=== PATIENT | female | born 1985 | race Caucasian/White ===

== ENCOUNTER 2021-10-11 14:11 | Emergency (ER) | payer OTHER ==
[~2021-10-11] VITALS: Ht 160 cm; Wt 99.8 kg
[~2021-10-11 14:11] MED LIST: CLIN150C16 PO; HYDR-4275 PO
[2021-10-11 14:24] VITALS: BP 160/85
[2021-10-11] MEDS ORDERED: POLY119P2 PO (14:47)
[2021-10-11] MEDS ORDERED: MAGN296S72 PO (14:47)
[2021-10-11] MEDS ORDERED: GLYC-30 RC (14:47)
== END 2021-10-11 15:08 | disposition home or self-care (01) ==
LOC: ER 14:11
DX: K59.00 Constipation, unspecified (principal); I10 Essential (primary) hypertension; E11.9 Type 2 diabetes mellitus without complications; Z88.0 Allergy status to penicillin; Z79.899 Other long term (current) drug therapy

== ENCOUNTER 2022-06-07 18:10 | Emergency (ER) | payer OTHER ==
[~2022-06-07] VITALS: Ht 160 cm; Wt 90.7 kg
[~2022-06-07 18:10] MED LIST changes: +GLYC-30 RC; +POLY119P2 PO
[2022-06-07 18:26] VITALS: BP 126/82
[2022-06-07] MEDS ORDERED: KETOROLAC TROMETHAMINE INJ 60 MG/2 ML VIAL IM ONE (22:30)
[2022-06-07] MEDS ORDERED: PROCHLORPERAZINE EDISYLATE 10 MG/2 ML VIAL IM ONE (22:30)
[2022-06-07] MEDS ORDERED: PROCHLORPERAZINE EDISYLATE 10 MG/2 ML VIAL ONE (22:39)
[2022-06-07] MEDS ORDERED: KETOROLAC TROMETHAMINE INJ 30 MG/ML VIAL ONE (22:39)
--- NOTE | 2022-06-07 22:49 | NUR ---
COVID AND FLU SWAB DONE AND SENT
--- NOTE | 2022-06-07 22:50 | NUR ---
CELLPHONE: [phone]
--- NOTE | 2022-06-07 22:50 | NUR ---
Patient discharged to home in stable condition. Written and verbal after care instructions given. Patient verbalizes understanding of instruction. Pt ambulatory with a steady gait
== END 2022-06-07 22:50 | disposition home or self-care (01) ==
LOC: ER 18:13
DX: J06.9 Acute upper respiratory infection, unspecified (principal); R51.9 Headache, unspecified; Z20.822 Contact with and (suspected) exposure to COVID-19; E11.65 Type 2 diabetes mellitus with hyperglycemia; Z79.84 Long term (current) use of oral hypoglycemic drugs; I10 Essential (primary) hypertension; E66.9 Obesity, unspecified; Z68.35 Body mass index [BMI] 35.0-35.9, adult; Z88.0 Allergy status to penicillin
CPT/HCPCS: 99284; 87426; 87804 ×2; 96372 ×2; J0780; J1885; C9803

== ENCOUNTER 2023-06-12 20:49 | Emergency (ER) | payer MEDICAID, OTHER ==
[~2023-06-12] VITALS: Ht 160 cm; Wt 90.7 kg
[2023-06-12 21:36] VITALS: BP 136/79; TEMP 98.8; O2SAT 98
[2023-06-12] MEDS ORDERED: AZIT250T13 PO (22:04)
== END 2023-06-12 22:47 | disposition home or self-care (01) ==
LOC: ER 20:52
DX: H66.92 Otitis media, unspecified, left ear (principal); I10 Essential (primary) hypertension; E11.9 Type 2 diabetes mellitus without complications; Z88.0 Allergy status to penicillin

== ENCOUNTER 2023-08-28 22:45 | Emergency (ER) | payer OTHER ==
[~2023-08-28] VITALS: Ht 160 cm; Wt 95.3 kg
[~2023-08-28 22:45] MED LIST changes: +AZIT250T13 PO
[2023-08-28 23:21] VITALS: BP 138/77; TEMP 98.8
[2023-08-28 23:50] VITALS: O2SAT 100
== END 2023-08-28 23:51 | disposition home or self-care (01) ==
LOC: ER 22:49
DX: J06.9 Acute upper respiratory infection, unspecified (principal); R05.9 Cough, unspecified; I10 Essential (primary) hypertension; E11.9 Type 2 diabetes mellitus without complications

== ENCOUNTER 2023-09-15 23:50 | Emergency (ER) | payer OTHER ==
[~2023-09-15] VITALS: Ht 160 cm; Wt 95.3 kg
[2023-09-16 00:15] VITALS: TEMP 98.4
[2023-09-16] MEDS ORDERED: NITR100C15 PO (00:40)
[2023-09-16] MEDS ORDERED: NITROFURANTOIN/MONOHYDRATE MACROCRYSTALS 100 MG CAPSULE ONE (00:47)
[2023-09-16] MEDS: NITROFURANTOIN/MONOHYDRATE MACROCRYSTALS 100 MG CAPSULE PO ONE (00:49)
[2023-09-16 00:51] VITALS: BP 138/81; O2SAT 100
== END 2023-09-16 00:52 | disposition home or self-care (01) ==
LOC: ER 23:59
DX: N39.0 Urinary tract infection, site not specified (principal); I10 Essential (primary) hypertension; E11.9 Type 2 diabetes mellitus without complications; E66.9 Obesity, unspecified; Z79.899 Other long term (current) drug therapy; Z68.37 Body mass index [BMI] 37.0-37.9, adult; Z88.0 Allergy status to penicillin

== ENCOUNTER 2023-10-20 15:56 | Emergency (ER) | payer MEDICAID, OTHER ==
[~2023-10-20] VITALS: Ht 160 cm; Wt 95.3 kg
[~2023-10-20 15:56] MED LIST changes: +NITR100C15 PO
[2023-10-20] MEDS ORDERED: DOXY100C2 PO (17:51)
[2023-10-20] MEDS ORDERED: LEVO500T90 PO (17:51)
[2023-10-20 17:59] VITALS: BP 159/89; TEMP 98.6
[2023-10-20 18:10] VITALS: O2SAT 100
== END 2023-10-20 18:10 | disposition home or self-care (01) ==
LOC: ER 16:02
DX: K04.7 Periapical abscess without sinus (principal); I10 Essential (primary) hypertension; E11.9 Type 2 diabetes mellitus without complications; Z79.899 Other long term (current) drug therapy; Z88.0 Allergy status to penicillin

== ENCOUNTER 2024-06-01 14:23 | Emergency (ER) | payer SELFPAY ==
[~2024-06-01] VITALS: Ht 160 cm; Wt 90.7 kg
[~2024-06-01 14:23] MED LIST changes: +DOXY100C2 PO; +LEVO500T90 PO
[2024-06-01 14:49] VITALS: BP 142/72; TEMP 99.3
[2024-06-01] MEDS ORDERED: BENZ-13 PO (15:32)
[2024-06-01] MEDS ORDERED: dexaMETHasone SOD PHOSPHATE 1 ML ONE (15:35)
[2024-06-01] MEDS: dexaMETHasone SOD PHOSPHATE 10 MG/ML VIAL IM ONE (15:40)
[2024-06-01 15:50] VITALS: O2SAT 97
== END 2024-06-01 15:51 | disposition home or self-care (01) ==
LOC: ER 14:28
DX: J02.8 Acute pharyngitis due to other specified organisms (principal); B97.89 Other viral agents as the cause of diseases classified elsewhere; I10 Essential (primary) hypertension; E11.9 Type 2 diabetes mellitus without complications; E66.9 Obesity, unspecified; Z88.0 Allergy status to penicillin
CPT/HCPCS: 99283; 96372; J1100

== ENCOUNTER 2024-10-17 10:35 | Emergency (ER) | payer SELFPAY ==
[~2024-10-17] VITALS: Ht 160 cm; Wt 108.9 kg
[~2024-10-17 10:35] MED LIST changes: +BENZ-13 PO
[2024-10-17 10:43] VITALS: BP 180/95; TEMP 98.6; O2SAT 97
[2024-10-17] MEDS ORDERED: FLUC200T PO (11:21)
[2024-10-17] MEDS ORDERED: CLIN300C12 PO (11:21)
== END 2024-10-17 11:28 | disposition home or self-care (01) ==
LOC: ER 10:39
DX: N76.2 Acute vulvitis (principal); E11.9 Type 2 diabetes mellitus without complications; E66.9 Obesity, unspecified; I10 Essential (primary) hypertension; Z88.0 Allergy status to penicillin; Z68.41 Body mass index [BMI] 40.0-44.9, adult

== ENCOUNTER 2025-05-29 14:26 | Emergency (ER) | payer MEDICAID ==
[~2025-05-29] VITALS: Ht 160 cm; Wt 90.7 kg
[~2025-05-29 14:26] MED LIST changes: +CLIN300C12 PO; +FLUC200T PO
[2025-05-29] MEDS ORDERED: ACETAMINOPHEN ES 500 MG TABLET ONE (15:12)
[2025-05-29] MEDS ORDERED: IBUPROFEN 600 MG TABLET ONE (15:12)
[2025-05-29] MEDS: ACETAMINOPHEN ES 500 MG TABLET PO ONE (15:13)
[2025-05-29] MEDS: IBUPROFEN 600 MG TABLET PO ONE (15:17)
[2025-05-29 17:22] LABS: APPEARANCE,URINE CLEAR (CLEAR); BLOOD, URINE 1+ Ery/uL (NEGATIVE); LEUKOCYTE ESTERASE ,URINE 1+ (NEGATIVE); NITRITE, URINE NEGATIVE (NEGATIVE); UGLUCOSE 2+ mg/dL (NEGATIVE)
[2025-05-29] MEDS ORDERED: IBUP-1490 PO (17:26)
[2025-05-29] MEDS ORDERED: NITR100C6 PO (17:26)
[2025-05-29 17:27] LABS: PREGNANCY TEST URINE QUAL NEGATIVE (NEGATIVE)
[2025-05-29 17:41] LABS: ADD URINE CULTURE YES
[2025-05-29 17:42] LABS: YEAST,URINE Rare /HPF (None Seen)
[2025-05-29 17:47] VITALS: BP 136/76; TEMP 98.5; O2SAT 100
== END 2025-05-29 17:49 | disposition home or self-care (01) ==
LOC: ER 14:31
DX: N39.0 Urinary tract infection, site not specified (principal); I10 Essential (primary) hypertension; E66.9 Obesity, unspecified; E11.9 Type 2 diabetes mellitus without complications; Z88.0 Allergy status to penicillin
CPT/HCPCS: 81001; 84703-TC